=== PATIENT | female | born 1980 | race Caucasian/White ===

== ENCOUNTER 2018-01-25 18:54 | Observation (INO) | payer SELFPAY ==
[2018-01-25] VITALS (8 sets, daily range): BP systolic 94–130; BP diastolic 67–81; PULSE 74–108; RESP 14–161; TEMP 36.2–37.2; O2SAT 94–99; BMI 40.1; BMI 34.3
--- NOTE | 2018-01-25 12:57 | CT_ITS ---
STUDY: CT ABDOMEN AND PELVIS WITH CONTRAST REASON FOR EXAM: Female, 37 years old. Right lower quadrant pain. RLQ pain and fever x 4 days, 4 weeks post . RADIATION DOSAGE (If Supplied By Facility): CTDIvol = ( 15.99 ) mGy, DLP = ( 1272.80 ) mGycm TECHNIQUE: Transaxial images were obtained from the dome of the diaphragm to the symphysis pubis without oral contrast. 100mL ml of Isovue 300 contrast was administered. Sagittal and coronal images were reconstructed. Individualized dose optimization techniques were used for this CT. COMPARISON: None. FINDINGS: The visualized lung bases are unremarkable. The visualized portions of the heart are within normal limits. Normal liver. Normal gallbladder and extrahepatic biliary system. Normal spleen. Normal pancreas. Normal bilateral adrenal glands. Normal right kidney. Normal left kidney. Normal visualized stomach. Normal small intestine. Normal colon. There is a tubular, thick-walled appendix (>7mm), consistent with acute appendicitis. Normal abdominal aorta. Normal inferior vena cava. Normal retroperitoneum. Normal urinary bladder. Normal abdominal wall. Normal osseous structures. CT/Abdomen/Pelvis WITH Contrast IMPRESSION: Acute appendicitis Electronically Signed: Toni Castaneda MD at 15:46 EDT Tel , Service support ,
[2018-01-25 13:08] LABS: Hematocrit 33.2 % (37-47); Hemoglobin 10.8 g/dl (12.0-15.0); Mean Corp Hgb Conc 32.5 g/gl (32-36); Mean Corpuscular Hgb 27.1 pg (27.0-32.0); Mean Corpuscular Volume 83.4 fL (81-99); Mean Platelet Vol. 10.3 fl (6.2-12.0); Platelet Count 315 K/mm3 (150-450); RBC Distribution Width SD 41.5 fl (35.1-43.9); Red Blood Count 3.98 M/mm3 (4.2-5.4)
[2018-01-25 13:11] LABS: Scan Indicated on CBC? Y/N NO
[2018-01-25 13:36] LABS: ALB/GLOB Ratio 0.8 RATIO (0.9-2.4); AST(SGOT) 31 U/L (15-37); Alanine Aminotransfer ALT/SGPT 41 U/L (13-56); Albumin, Serum 3.4 g/dL (3.2-5.0); Alkaline Phosphatase 140 U/L (45-117); Anion Gap 6 (5-15); BUN 8 mg/dL (7-18); BUN/Creat Ratio 9.2 RATIO (10-20); Calcium,Total 8.2 mg/dL (8.5-10.1); Chloride 100 mmol/L (98-107); Creatinine, Serum 0.87 mg/dL (0.55-1.02); EST Glomerular Filtration Rate 77 mL/min (>60); Est Glom Filt Rate - Afr Amer 93 mL/min (>60); Glucose 152 mg/dL (74-106); Potassium 4.3 mmol/L (3.5-5.1); Protein, Total 7.4 g/dL (6.4-8.2); Sodium Level 134 mmol/L (136-145)
[2018-01-25] MEDS: Piperacil/Tazobactam 3.375 GM/50 ML ML IV (17:25)
--- NOTE | 2018-01-25 17:30 | APP_PTH ---
PATIENT: CRISTINE WHATLEY LOC: [facility]3 U#:[id number] AGE/SX: 37/F ROOM: MS313 RE01/25/[address]: Dr. Rafael Beltran MD : 1980 BED: 1 DIS: 01/26/2018 SPEC #: [id number] RECD: 01/26/18 08:54 STATUS: EDY EILEEN #: [id number] YG: 01/25/18 17:[address]: Rafael Beltran DEPT: SURGICAL PATHOLOGY RECD BY: Navarro Etienne ENTERED: 01/26/18 09:32 SP TYPE: APPENDIX OTHR DR: Dr. Debbie Paz MD No Primary Care Phys Tissues: A - Appendix, NOS B - HERNIA Procedures: Surgery Specimen Level II Surgery Specimen Level III HEADER OPERATION: Laparoscopic appendectomy, umbilical hernia repair PRE-OP DIAGNOSIS: Acute appendicitis, umbilical hernia TISSUE SUBMITTED: A ? Appendix, B ? Hernia sac MICROSCOPIC DIAGNOSIS A. Appendix, appendectomy: Acute appendicitis. Acute serositis. B. Soft tissue of umbilical region, excision: Hernia sac with mild fibrosis. AM:nettie 01/27/18 MICROSCOPIC DESCRIPTION Slides are reviewed. GROSS DESCRIPTION A - Received is one container labeled with the patient's name and designated appendix. The specimen consists of an appendix measuring 7.5 cm in length and up to 1 cm in average diameter. The attached periappendiceal adipose tissue measures up to 3 cm in width. The serosa is congested. No obvious perforation is identified. The mucosa is focally congested. No fecalith is identified. Lithographed Plate Inspector sections are submitted in one cassette. B - Received in fixative is one container labeled with the patient's name and designated hernia sac. The specimen consists of two pieces of soft tissue measuring in aggregate 1 x 1 x 0.2 cm. The entire specimen is submitted in one cassette. / SJ:nettie 01/26/18 TC:2 CPT: 55883, 39863
--- NOTE | 2018-01-25 17:54 | PCM.DC.GS ---
Discharge Diet: Light diet - advance as tolerated - if you have questions about your diet instructions, please talk to you doctor. Discharge Activity: May Not Drive - for 1 week or while taking narcotic pain medicine. May shower in (days): 1 Lifting Restrictions: 10 pounds Call your doctor if your incision/area has: Continuous Slow Oozing, Sudden Increased Bleeding, Increased Pain/ Swelling, Increased Redness, Foul Smelling Discharge Call your doctor if you observe: Fever of 101 or Higher Suture Line Care: Avoid Pulling/Pushing, Avoid Pinching/Bending Additional Dressing/Incision Instructions:: Change or remove dressing in 4 days. Leave steri-strips in place for 1 week. Allergies/Adverse Reactions: Allergies No Known Allergies Allergy (Verified 01/25/18 16:26) Medications to take at Discharge Mv-Min/Iron/Folic/Calcium/Vitk [Women's Multivitamin Tablet] 1 each PO DAILY 01/25/18 Primary Care Physician: Care Physician,No Primary [Primary Care Provider] - Please Follow Up With: Rafael Beltran MD - [phone] When: Call to make an appointment to be seen in about 10 days.
[2018-01-25 18:12] LABS: Pregnancy, Serum, hCG Quali. NEGATIVE Negative (0-9 Nonpreg)
[2018-01-25] MEDS: Bupivacaine Mpf 0.5% 30 ML VIAL (18:50)
--- NOTE | 2018-01-25 18:58 | PCM.OPRPT ---
Problem List (1) Acute appendicitis Status: Acute Qualifiers: Acute appendicitis type: unspecified acute appendicitis type Qualified Code(s): K35.80 - Unspecified acute appendicitis (2) Umbilical hernia Status: Acute Qualifiers: Obstruction and gangrene presence: without obstruction or gangrene Qualified Code(s): K42.9 - Umbilical hernia without obstruction or gangrene Report of Operation Date of Procedure: 01/25/18 Pre-Operative Diagnosis: Acute appendicitis. Umbilical hernia Post-Operative Diagnosis: Same Surgery/Procedure Performed:: Laparoscopic appendectomy. Umbilical herniorrhaphy Description of Surgical Findings:: Timeout and informed consent was obtained. 37-year-old gent was taken the operating. Zosyn 3.375 g are given intravenously therapeutically preoperatively. She underwent general ventricular-based anesthesia. The abdomen was sterilely prepped draped. 0.5% Marcaine was used as a local anesthetic. Skin sites were pre-anesthetized. Throughout the procedure total 30 cc was used. A curvilinear incision was made in the inferior portion of the umbilicus. The umbilical hernia sac identified. It was circumferentially dissected free and a portion submitted as a specimen. It is of note that the patient has an incredibly thin attenuated abdominal wall at all locations. The Muñoz catheter was inserted. Under direct visitation five-minute in the low infraumbilical midline position. The abdomen was inspected. There was obvious acute inflammation of the appendix with some periappendiceal induration of the mesentery and fat. Blunt dissection was instituted at the appendiceal base. A standard height 45 mm stapler was placed and the appendix was secured absolutely flush with the cecum. A vascular height stapler was used to transect the mesoappendix. A Hem-o-belia clip was used for additional hemostasis. The appendix was placed within a retrieval bag. There was no spillage. The resection area was inspected carefully. Hemostasis was nicely intact. The Muñoz catheter appendix removed at the umbilicus. The abdomen was allowed to deflate of the CO2. The umbilical hernia was approximated with several interrupted [id number] sutures of 0 Nurolon. Skin edges were approximated up to 4 Monocryl subdermal stitches at all skin sites. Steri-Strips Telfa and OpSite dressings applied. Sponge and instrument and needle counts were reported to the surgeon to be correct. Specimens include the appendix in the umbilical hernia sac. Drains none. Blood loss minimal. The patient was taken to the recovery area in satisfactory condition. Rafael Beltran M.D., F.A.C.S. Type of Anesthesia:: General Anesthesiologist: Zuhair Alfaro
--- NOTE | 2018-01-25 19:01 | OP.PCM_ITS ---
Problem List (1) Acute appendicitis Status: Acute Qualifiers: Acute appendicitis type: unspecified acute appendicitis type Qualified Code (s): K35.80 - Unspecified acute appendicitis (2) Umbilical hernia Status: Acute Qualifiers: Obstruction and gangrene presence: without obstruction or gangrene Qualified Code(s): K42.9 - Umbilical hernia without obstruction or gangrene Report of Operation Date of Procedure: 01/25/18 Pre-Operative Diagnosis: Acute appendicitis. Umbilical hernia Post-Operative Diagnosis: Same Surgery/Procedure Performed:: Laparoscopic appendectomy. Umbilical herniorrhaphy Description of Surgical Findings:: Timeout and informed consent was obtained. 37-year-old gent was taken the operating. Zosyn 3.375 g are given intravenously therapeutically preoperatively. She underwent general ventricular-based anesthesia. The abdomen was sterilely prepped draped. 0.5% Marcaine was used as a local anesthetic. Skin sites were pre-anesthetized. Throughout the procedure total 30 cc was used. A curvilinear incision was made in the inferior portion of the umbilicus. The umbilical hernia sac identified. It was circumferentially dissected free and a portion submitted as a specimen. It is of note that the patient has an incredibly thin attenuated abdominal wall at all locations. The Muñoz catheter was inserted. Under direct visitation five-minute in the low infraumbilical midline position. The abdomen was inspected. There was obvious acute inflammation of the appendix with some periappendiceal induration of the mesentery and fat. Blunt dissection was instituted at the appendiceal base. A standard height 45 mm stapler was placed and the appendix was secured absolutely flush with the cecum. A vascular height stapler was used to transect the mesoappendix. A Hem-o-belia clip was used for additional hemostasis. The appendix was placed within a retrieval bag. There was no spillage. The resection area was inspected carefully. Hemostasis was nicely intact. The Muñoz catheter appendix removed at the umbilicus. The abdomen was allowed to deflate of the CO2. The umbilical hernia was approximated with several interrupted [id number] sutures of 0 Nurolon. Skin edges were approximated up to 4 Monocryl subdermal stitches at all skin sites. Steri-Strips Telfa and OpSite dressings applied. Sponge and instrument and needle counts were reported to the surgeon to be correct. Specimens include the appendix in the umbilical hernia sac. Drains none. Blood loss minimal. The patient was taken to the recovery area in satisfactory condition. Rafael Beltran M.D., F.A.C.S. Type of Anesthesia:: General Anesthesiologist: Zuhair Alfaro
[2018-01-26 00:26] VITALS: BP 107/62; PULSE 88; RESP 18; TEMP 37.4; O2SAT 94
--- NOTE | 2018-01-26 01:08 | NURSING ---
Post-op checks completed, patient stated she still wanted to breastfeed her son. This RN told patient that she would be back around 1am, patient was okay with this, to see if the patient wanted to try and walk and use the bathroom. This RN knocked on the door, walked into the patients room and patient was still . Per patient I don't think I can do anything. This RN told patient that she would be back to try again once she was done. Will continue to monitor.
--- NOTE | 2018-01-26 01:53 | NURSING ---
Patient was assisted to the bathroom via x2 assist, c/o feeling dizzy. Patient was able to void 450mls. Patient was then able to walk in hallway with this RN and COLLABORATING SUPERVISING PHYSICIAN. Patient assisted back to bed, water pitcher refilled. PRN pain medication offered and patient declined. Will continue to monitor.
[2018-01-26 01:55] VITALS: TEMP 37.1
[2018-01-26] MEDS: Lactated Ringers 1,000 ML 30 ML IV (02:05)
[2018-01-26 06:05] VITALS: BP 109/61; PULSE 83; RESP 16; TEMP 36.9; O2SAT 95
[2018-01-26] MEDS: Enoxaparin 40 MG/0.4 ML Syringe SC (06:11)
[2018-01-26] MEDS: 0.9% NaCl Peripheral Flush Adult/Peds IV (06:11)
--- NOTE | 2018-01-26 06:38 | PCM.PN.SRG ---
Patient Problems: Active and Suspected Problems (Last Updated 01/25/18 @ 16:25 by Kia Burris) Acute appendicitis (Acute) Umbilical hernia (Acute) Subjective: Patient evaluated resting comfortably in bed. She denies nausea, vomiting, fever. She notes minimal discomfort in the RLQ. - Physical Exam General: Alert, Oriented x3, Cooperative Abdomen: Bowel Sounds Present, Soft, Tender - RLQ Vital Signs Temp Pulse Resp BP Pulse Ox 98.4 F 83 16 109/61 95 01/26/18 06:05 01/26/18 06:05 01/26/18 06:05 01/26/18 06:05 01/26/18 06:05 Oxygen Delivery Method Room Air Weight: 200 lb Body Mass Index (BMI) 34.3 Intake and Output for Last 24 Hours 01/24/18 01/25/18 01/26/18 23:59 23:59 23:59 Intake Total 700 / 700 1563 / 1563 Output Total 1150 / 1150 Balance 700 / 700 413 / 413 Laboratory Tests Past 24 Hrs 01/25/18 01/25/18 01/25/18 12:45 12:45 12:50 WBC 6.0 RBC 3.98 L Hgb 10.8 L Hct 33.2 L MCV 83.4 MCH 27.1 MCHC 32.5 RDW 14.0 RDW Differential 41.5 Plt Count 315 MPV 10.3 Sodium 134 L Potassium 4.3 Chloride 100 Carbon Dioxide 28.0 Anion Gap 6 BUN 8 Creatinine 0.87 Est GFR (MDRD) Af Amer 93 Est GFR (MDRD) Non-Af 77 BUN/Creatinine Ratio 9.2 L Glucose 152 H Calcium 8.2 L Total Bilirubin 0.80 AST 31 ALT 41 Alkaline Phosphatase 140 H Total Protein 7.4 Albumin 3.4 Globulin 4.0 Albumin/Globulin Ratio 0.8 L Serum , Qual NEGATIVE Medical Necessity - Tobacco Use Smoking Status: Never smoker Tobacco Use: Non-smoker Assessment/Plan All Active Problems (Last Updated 01/25/18 @ 16:25 by Kia Burris) Acute appendicitis (Acute) Umbilical hernia (Acute) Delirium (Acute) Acute blood loss anemia (Acute) Hemorrhagic shock (Acute) Spontaneous complicated by shock (Acute) I am following this patient in conjunction with Dr. Beltran S/p Laparoscopic appendectomy Ready for discharge
[2018-01-26 08:36] VITALS: BP 119/72; PULSE 75; RESP 16; TEMP 37.2; O2SAT 95
== END 2018-01-26 11:34 | disposition home or self-care (01) ==
LOC: MS3 20:26
PROVIDERS: Anesthesiology; Obstetrics & Gynecology; Admitting Provider Surgery; Visit Provider Surgery
PROC: 0DTJ4ZZ Resection of Appendix, Percutaneous Endoscopic Approach (ICD-10-PCS; CPT 44970; principal; 2018-01-25 17:30)
DX: K35.80 Unspecified acute appendicitis (principal); K42.9 Umbilical hernia without obstruction or gangrene
CPT/HCPCS: 00840; 44970; 49652; 36415; 74177; 80053; 84703; 85027; 88302; 88304; 96372; 99218; J7120; Q9967; A4216; G0378; G0379; J0330; J2405

== ENCOUNTER 2019-12-05 18:23 | Emergency (ER) | payer OTHER, SELFPAY ==
[2019-12-05 18:23] VITALS: BP 150/91; PULSE 87; RESP 24; TEMP 35.9; O2SAT 100; BMI 39.7
--- NOTE | 2019-12-05 18:39 | ED.VISSUMM ---
- ER Visit Summary Date of Service: 12/05/19 Chief Complaint: Reportedly 11 weeks with heavy vaginal bleeding History of Present Illness: The patient is a 39 F G 16 P 12 AB 3 patient states she is 11 weeks and today started having heavy vaginal bleeding. States she was on the toilet and passed out. She did not fall because her was there holding her up. She denies any pain. She has had 3 prior miscarriages. Her blood type is O+ according to prior labs. She denies any other complaints. Said she is recently been healthy. Physical Examination: Middle-aged female vital signs are stable afebrile. Pulse ox 100% on room air no signs hypoxia. Initial pressure 150/91. HEENT exam unremarkable. Neck nontender. Lungs clear to auscultation bilaterally. Heart regular rhythm rate about 85 no murmur. Abdomen soft nontender normal bowel sounds no peritoneal signs. Extremities moves all 4. Calves nontender no edema no cords. Neurologically she is awake alert with no focal motor deficits. Pelvic exam done female nurse present in the room. Female nurse present in room. External exam unremarkable. Speculum exam showed moderate vaginal bleeding small clots. Bimanual exam she had no uterine or adnexal tenderness. There was no discharge. Test Results: CBC shows a white count of 14. Hemoglobin 11.4 previously she was around 10.5. Chemistries unremarkable normal creatinine and gap. Blood type so positive from a prior draw. Quantitative hCG is only 882. I discussed with the patient she said she had an ultrasound done in her home which they thought she was around 7 weeks around 3 to 4 weeks ago. She has had no prior quantitative hCGs this . Emergency Department Course and Treatment: female first trimester with heavy vaginal bleeding. Concern for miscarriage. She passed out also concern for anemia. She also requested to be treated with a liter normal saline due to her lightheadedness at home. Repeat exam patient is doing well at 11 PM. I discussed all the test results with her. Clinically I think she is having a miscarriage. I also called her NIGHT SUPERVISOR Dr. Jose Ramon hammonds who will follow-up as an outpatient. Treatment Plan: I will up with your NIGHT SUPERVISOR tomorrow. Return if feeling a lot worse or having much heavier bleeding. Tylenol and/or Motrin for pain. Disposition: Discharge Impression: First trimester Threatened miscarriage Heavy vaginal bleeding Syncopal event This note was generated with [employer] dictation software. It may contain incorrect words, spelling, and punctuation that were not noted in review of the chart prior to signing ED Disposition - Plan for ED Patient: Disposition: Home or Assisted Living Instructions: ED Possible Miscarriage Threatened Referrals: Debbie Paz MD [STAFF PHYSICIAN] - 1 Day Additional Instructions: Plenty of fluids and rest. Follow-up with your NIGHT SUPERVISOR doctor Debbie Paz tomorrow. Tylenol and or Motrin for pain. Return to the ER if you are having much worse bleeding or feeling worse. Otherwise follow-up with Dr. Jose Ramon Spears tomorrow. I think your having a miscarriage.
[2019-12-05 18:44] VITALS: BP 143/120; PULSE 86; RESP 18; O2SAT 99
[2019-12-05 18:47] LABS: Hematocrit 34.4 % (37-47); Hemoglobin 11.4 g/dL (12.0-15.0); Mean Corp Hgb Conc 33.1 g/dL (32-36); Mean Corpuscular Hgb 27.7 pg (27.0-32.0); Mean Corpuscular Volume 83.7 fL (81-99); Mean Platelet Vol. 10.1 fl (6.2-12.0); Platelet Count 323 K/mm3 (150-450); RBC Distribution Width CV 13.4 % (11.6-14.6); RBC Distribution Width SD 40.9 fl (35.1-43.9); Red Blood Count 4.11 M/mm3 (4.2-5.4); White Blood Count 14.2 K/mm3 (4.4-11.0)
[2019-12-05 19:06] LABS: Anion Gap 8 (5-15); BUN 11 mg/dL (7-18); Calcium,Total 8.8 mg/dL (8.5-10.1); Chloride 106 mmol/L (98-107); Creatinine, Serum 0.92 mg/dL (0.55-1.02); EST Glomerular Filtration Rate 72 mL/min (>60); Est Glom Filt Rate - Afr Amer 87 mL/min (>60); Estimated Creatinine Clearance 72.41 ml/min; Glucose 129 mg/dL (74-106); Potassium 3.4 mmol/L (3.5-5.1); Sodium Level 139 mmol/L (136-145)
[2019-12-05 19:09] LABS: hCG Titer Quant., Serum 882 mIU/mL (1-3)
--- NOTE | 2019-12-05 20:14 | DCINST.ED_ITS ---
ED Disposition - Plan for ED Patient: Disposition: Home or Assisted Living Instructions: ED Possible Miscarriage Threatened Referrals: Debbie Paz MD [STAFF PHYSICIAN] - 1 Day Additional Instructions: Plenty of fluids and rest. Follow-up with your ASSISTANT WOMEN'S TENNIS COACH doctor Debbie Paz tomorrow. Tylenol and or Motrin for pain. Return to the ER if you are having much worse bleeding or feeling worse. Otherwise follow-up with Dr. Jose Ramon Spears tomorrow. I think your having a miscarriage.
[2019-12-05 20:23] VITALS: BP 119/72; PULSE 89; RESP 18; O2SAT 97
[2019-12-05] MEDS: 0.9% Normal Saline 1,000 ML 999 ML IV (20:33)
== END 2019-12-05 21:50 | disposition home or self-care (01) ==
PROVIDERS: Emergency Provider Emergency Medicine
DX: O20.0 Threatened abortion (principal); O26.891 Other specified pregnancy related conditions, first trimester; R55 Syncope and collapse; Z3A.11 11 weeks gestation of pregnancy
CPT/HCPCS: 80048; 84702; 85027; 96360; 99283; J7030; A4216

== ENCOUNTER 2022-09-30 15:37 | Emergency (ER) | payer SELFPAY ==
[2022-09-30 15:38] VITALS: BP 138/84; PULSE 116; RESP 14; TEMP 36.2; O2SAT 97; BMI 40.9
--- NOTE | 2022-09-30 15:59 | US_ITS ---
EXAM: US , TRANSVAGINAL CLINICAL INDICATION: bleeding and TECHNIQUE: Real-time transvaginal obstetrical ultrasound of the maternal pelvis and a first trimester with image documentation. Transvaginal imaging was used for better evaluation of the fetus and adnexa. This report was created using [employer] report generation technology. COMPARISON: None. FINDINGS: GESTATION: There is no evidence of a gestational sac. PLACENTA/AMNIOTIC FLUID: Cannot be adequately evaluated due to the early gestational age. UTERUS/CERVIX: Uterus measures 11.6 x 6.2 x 8.1 cm. The endometrium measures 1.8 cm transabdominally and 1.4 cm endovaginally. No myometrial mass. OVARIES: The left ovary measures 2.5 x 1.8 x 1.9 cm. The right ovary is not visualized. FREE FLUID: No free fluid. US/Transvaginal w/Preg US IMPRESSION: Thickened endometrium with no evidence of a gestational sac or intrauterine gestation. Right ovary is not visualized. No mass or fluid collections are identified. Electronically Signed: Ezekiel Flynn MD at 17:19 [facility] ,
--- NOTE | 2022-09-30 16:04 | EDS_ITS ---
HPI HPI - Female History of Present Illness Chief Complaint: Vag Bld, Preg Informant: patient Bleeding Issue: Positive for Vaginal bleeding and Passing clots Onset: Today Timing: Continuous Current Severity: Similar to period Associated Symptoms Associated Symptoms: Negative for Dysuria or Frequency Test: Positive P: 13 Ab: 4 Narrative Narrative: 42-year-old female no past medical history other than with 4 prior miscarriages. Currently she is about 12 weeks is had no care. 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 Started having vaginal bleeding today. She believes she is having a miscarriage. Her DETAIL ASSEMBLER Dr. Debbie Paz called and to have her evaluated. Patient denies any pain. Prior similar symptoms: Yes Recent Illness/Hospitalization: No PFSH PFSH Medical History (Updated 09/30/22 @ 17:[address] Domo Coburn MD) No pertinent past medical history Home Medications misoprostol 200 mcg tablet (Cytotec) 600 mcg PO .complex #8 tabs 12/06/19 [Rx Last Taken Unknown] Allergy/AdvReac Type Severity Reaction Status Date / Time No Known Allergies Allergy Verified 09/30/22 15:38 Family History Mother No problems noted. 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 Review of Systems ROS Unobtainable: Denies due to encephalopathy Constitutional Constitutional ED: Denies chills or fever(s) Eyes Eyes: Denies blurry vision ENT ENT ED: Denies ear pain Cardiovascular Cardiovascular: Denies chest pain Respiratory/Chest Respiratory/Chest: Denies cough Gastrointestinal Gastrointestinal: Denies abdominal pain Genitourinary Genitourinary ED: Denies dysuria Musculoskeletal Musculoskeletal: Denies arthralgias Integumentary Denies abscess Neurologic Neurologic: Denies headache(s) Psychiatric Psychiatric: Denies anxiety Endocrine Endocrinology: Denies heat intolerance Hematologic/Lymphatic Hematologic/Lymphatic: Denies easy bleeding Allergic/Immunologic Allergic/Immunologic ED: Denies mouth swelling or tongue swelling EXAM Physical Exam Narrative Exam Narrative: 42-year-old female no acute distress. Vital signs stable afebrile. Initial blood pressure 138/84. Heart rate 116. Patient does not look septic or toxic. H EENT exam unremarkable. Moist weeks membranes. Neck nontender no lymphadenopathy. Lungs clear to auscultation bilaterally. Heart tachycardic rate about 115 no murmur. Abdomen soft nondistended normal bowel sounds no peritoneal signs. No significant tenderness. Moving all 4 extremities. Nontender no edema. Neurologically she is awake and alert. Const Vital Signs: 09/30/22 15:38 Temperature 97.2 F L Temperature Source Temporal Pulse Rate 116 H Respiratory Rate 14 Blood Pressure 138/84 H Blood Pressure Mean 102 Pulse Ox 97 Oxygen Delivery Method Room Air Positive well nourished and well developed; Negative for obese, cachectic, contractures or unkempt General Appearance ED: well developed and NAD; Negative for unkempt, cachectic, contractures or pallor Nutritional Appearance: Negative for cachectic or obese HEENT Reports moist mucous membranes Negative for trauma or tenderness Eyes PERRL and EOMs intact bilaterally General Eye ED: Negative for pale conjunctiva or scleral icterus Neck no lymphadenopathy, supple and no JVD General: Negative for other Thyroid: Negative for tender Lymph Lymphatic: Negative for other Chest Wall inspection of chest normal and palpation of chest normal Chest: Negative for other Resp normal respiratory effort and clear to auscultation bilaterally Effort and Inspection: Negative for pain with movement Auscultation: Negative for rales, rhonchi or wheezes Cardio regular rhythm, S1 normal heart sound, no murmurs and no JVD; Negative for regular rate Rate: tachycardic GI normal to inspection, nondistended, normoactive bowel sounds, soft to palpation, non-tender and non-distended Auscultation: normoactive bowel sounds Palpation: Negative for tender or guarding Back/Spine no CVA tenderness General Back: Negative for CVA tenderness Cervical Spine: Negative for cervical spine tenderness Thoracic Spine / Upper Back: Negative for thoracic spinal tenderness Lumbar Spine / Lower Back: Negative for lumbar spinal tenderness Sacrum: Negative for other Extremity normal to inspection and full ROM General Extremety ED: Negative for edema General Extremity: Negative for edema Neuro oriented x3 and CN's II-XII intact bilaterally Sensorium / Orientation: alert, oriented to person, oriented to place and oriented to time; Negative for confused, lethargic or stuporous Motor Exam: strength 5/5 throughout Psych mental status grossly normal Appearance: Negative for unkempt Attitude: No agitated Speech: No other Mood & Affect: Negative for depressed, anxious or tearful Skin no rashes or lesions noted and no wounds General Skin Exam: Negative for pallor Rashes: No rashes noted Trauma: Negative for other MDM MDM MDM Narrative Medical decision making narrative: 42-year-old female with 4 prior miscarriages. Currently at 12 weeks with no care and having vaginal bleeding. Concern is for possible miscarriage versus other etiologies. Ultrasound and labs are being obtained. Have already spoken to the the DETAIL ASSEMBLER Dr. Jose Ramon Spears that will be caring for the patient. The question is does she need a D&C if so they will try to do it soon. If not they will treat her with medications. I did review the patient's old labs. Her blood type so positive. Repeat exam patient is doing well at 4:45 PM and 5:13 PM. I spoke to her DETAIL ASSEMBLER Dr. Debbie Paz. She came and evaluated patient and did a pelvic exam in the ER. She said while she was on pelvic exam the patient passed tissue consistent with a completed miscarriage. There is no heavy bleeding at this time. In regards to her labs and ultrasound Dr. Jose Ramon Spears is comfortable with the patient being discharged home. She does not need a D&C at this time. She does not need to be given any medications. Patient be discharged home with instructions to return if she has heavy bleeding or follow-up with Dr. Jose Ramon dunaway if not improving. Lab Data Attestation: I reviewed the patient's lab results. Lab results narrative: CBC shows a white count 9.8. H&H 11.5 and 35.3. Platelets 325. These labs are consistent with . She does not need any type of transfusion. Blood type so positive. Her quant is pending. Patient's electrolytes are unremarkable normal anion gap of 11. Normal BUN and creatinine. Glucose 118. Transvaginal pelvic ultrasound showed a completed miscarriage with no retained products of conception. Thickened endometrium consistent with . Labs: Laboratory Results - last 24 hr 09/30/22 09/30/22 09/30/22 16:10 16:10 16:10 WBC 9.8 RBC 4.24 Hgb 11.5 L Hct 35.3 L MCV 83.3 MCH 27.1 MCHC 32.6 RDW Std Deviation 42.3 RDW Coeff of Leyla 14.1 Plt Count 325 MPV 10.4 Sodium 140 Potassium 3.7 Chloride 107 Carbon Dioxide 22.0 Anion Gap 11 BUN 11 Creatinine 0.76 Estim Creat Clear Calc 85.00 Est GFR (MDRD) Af Amer 107 Est GFR (MDRD) Non-Af 88 BUN/Creatinine Ratio 14.6 Glucose 118 H Calcium 8.6 Blood Type O POSITIVE Discharge Plan Triage Chief Complaint: Vag Bld, Preg ED Provider: Domo Coburn Dx/Rx/DC Orders Clinical Impression: Vaginal bleeding in , Complete miscarriage Instructions: ED Miscarriage Spontaneous Prescriptions: No Action misoprostol [Cytotec] 200 mcg tablet 600 mcg PO .complex Qty: 8 0RF Rx Instructions: 3 tabs vaginally now and 200mcg every 4 hours x 24 hours. Primary Care Provider: Demarcus Huerta Referrals: Demarcus Huerta DO [Primary Care Provider] - Debbie Paz MD [Med Staff - Active Staff] - 3-5 Days if not improving Activity Restrictions/Additional Instructions: Plenty fluids and rest. Tylenol and/or Motrin for pain. Follow-up with Dr. Debbie Paz if not improving. Return to the emergency department if continued heavy bleeding or you develop a fever. Disposition Disposition: Home, Self Care
[2022-09-30 16:25] LABS: Hematocrit 35.3 % (37-47); Hemoglobin 11.5 g/dL (12.0-15.0); Mean Corp Hgb Conc 32.6 g/dL (32-36); Mean Corpuscular Hgb 27.1 pg (27.0-32.0); Mean Corpuscular Volume 83.3 fL (81-99); Mean Platelet Vol. 10.4 fl (6.2-12.0); Platelet Count 325 K/mm3 (150-450); RBC Distribution Width CV 14.1 % (11.6-14.6); RBC Distribution Width SD 42.3 fl (35.1-43.9); Red Blood Count 4.24 M/mm3 (4.2-5.4); White Blood Count 9.8 K/mm3 (4.4-11.0)
[2022-09-30 16:35] LABS: Anion Gap 11 (5-15); BUN 11 mg/dL (7-18); BUN/Creat Ratio 14.6 RATIO (10-20); Calcium,Total 8.6 mg/dL (8.5-10.1); Chloride 107 mmol/L (98-107); Creatinine, Serum 0.76 mg/dL (0.55-1.02); EST Glomerular Filtration Rate 88 mL/min (>60); Est Glom Filt Rate - Afr Amer 107 mL/min (>60); Glucose 118 mg/dL (74-106); Potassium 3.7 mmol/L (3.5-5.1); Sodium Level 140 mmol/L (136-145)
[2022-09-30 17:23] LABS: hCG Titer Quant., Serum 1471 mIU/mL (1-3)
--- NOTE | 2022-10-01 | POC_PTH ---
PATIENT: CRISTINE WHATLEY LOC: ED U#:[id number] AGE/SX: 42/F ROOM: RE09/30/[address]: Dr. Domo Coburn MD : 1980 BED: DIS: 09/30/2022 SPEC #: [id number] RECD: 10/01/22 07:49 STATUS: EDY ARELLANO #: [id number] YG: 10/01/22 00:[address]: Domo Coburn DEPT: SURGICAL PATHOLOGY RECD BY: Candido Shipley ENTERED: 10/01/22 07:50 SP TYPE: PROD CONC OTHR DR: Dr. Demarcus Huerta DO Tissues: Product of conception, NOS Procedures: Surgery Specimen Level IV HEADER OPERATION: Not noted PRE-OP DIAGNOSIS: Missed TISSUE SUBMITTED: Products of conception MICROSCOPIC DIAGNOSIS Endometrium, curettage: Chorionic villi with focal hydropic change, decidualized stroma and trophoblastic cells consistent with products of conception. AM:nettie 10/04/2022 COMMENT Case has been reviewed in consultation with Dr. Gold who concurs with the above diagnosis. IDC:HERIBERTO MICROSCOPIC DESCRIPTION Slides are reviewed. GROSS DESCRIPTION Received fresh and postfixed in formalin is one container labeled with the patient's name and not further designated. The specimen consists of multiple fragments of pink hemorrhagic soft tissue mixed with blood clots that in aggregate measure 9.0 x 7.0 x 2.5 cm. No obvious tissue is identified. A textile machinery sales representative section is saved for Anora studies if needed. Supervisor Carding sections are submitted in six cassettes. / HERIBERTO:nettie 10/01/2022 TC:5 CPT: 27995
[2022-10-05 13:28] LABS: Pathology Specimen OB SEE PATHOLOGY REPORT
== END 2022-09-30 18:00 | disposition home or self-care (01) ==
PROVIDERS: Emergency Provider Emergency Medicine; PCP Family Medicine; Visit Provider Emergency Medicine
DX: O03.9 Complete or unspecified spontaneous abortion without complication (principal); Z87.59 Personal history of other complications of pregnancy, childbirth and the puerperium
CPT/HCPCS: 76817; 80048; 84702; 85027; 86850; 86900; 86901; 88305; 99283; A4216

== ENCOUNTER 2023-11-25 09:11 | Emergency (ER) | payer OTHER, SELFPAY ==
[2023-11-25 09:11] VITALS: BP 150/78; PULSE 76; RESP 14; TEMP 36.6; O2SAT 100; BMI 42.0
--- NOTE | 2023-11-25 09:38 | EKG12_ITS ---
Test Reason : CP Blood Pressure : / mmHG Vent. Rate : 076 BPM Atrial Rate : 076 BPM P-R Int : 138 ms QRS Dur : 096 ms QT Int : 388 ms P-R-T Axes : 070 074 050 degrees QTc Int : 436 ms Normal sinus rhythm Normal ECG Confirmed by Alvarez Rolon ([id number]), development editor DOM GARCIA ([id number]) on 11/28/2023 6:31:27 AM Referred By: Confirmed By:Alvarez Rolon
--- NOTE | 2023-11-25 09:39 | ED.VIS.CHEST ---
HPI History of Present Illness Chief Complaint: Chest Pain Informant: patient and spouse/S.O. Narrative Narrative: 12-year-old female presenting to the emergency see room with back pain and chest pain. Patient states that last night at about 1800 hrs. she began to have a dull pressure in the left side of her chest. It would occasionally become sharp. She states between 2000 and 2200 hrs. it was better but they got worse when she lay down to sleep. This morning she states that it was present again and seems to be more in the left thoracic back by her shoulder blade. She states when she moves her neck she feels discomfort in the musculature of the left neck down into the area of the back that is hurting. She denies any DVT or PE risk factors. No known cardiac disease. No history of pneumothorax. She denies cough or vomiting or fevers. She currently takes no home medications [facility] Medical History (Updated 11/25/23 @ 11:[address] Phu Forretser DO) No pertinent past medical history Home Medications misoprostol 200 mcg tablet (Cytotec) 600 mcg (3 x 200 mcg) PO .complex #8 tabs 12/06/19 [Rx Last Taken Unknown] cyclobenzaprine 10 mg tablet 10 mg PO TID PRN Muscle Spasm #15 TABLETS 11/25/23 [Rx Last Taken Unknown] Allergy/AdvReac Type Severity Reaction Status Date / Time No Known Allergies Allergy Verified 11/25/23 09:11 Family History Mother No problems noted. 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 ROS ROS ED Constitutional Constitutional ED: Denies chills, fever(s) or weight loss Eyes Eyes: Denies change in vision or diplopia ENT ENT ED: Denies ear pain, rhinorrhea or sore throat Cardiovascular Cardiovascular: Reports chest pain; Denies orthopnea, palpitations or racing heartbeat Respiratory/Chest Respiratory/Chest: Denies cough, dyspnea or orthopnea Gastrointestinal Gastrointestinal: Denies abdominal pain, diarrhea, nausea or vomiting Genitourinary Genitourinary ED: Denies dysuria, hematuria or urinary frequency Musculoskeletal Musculoskeletal: Reports back pain and neck pain; Denies arthralgias or myalgias Integumentary Denies abscess or rash Neurologic Neurologic: Denies headache(s) or weakness Psychiatric Psychiatric: Denies anxiety, depression, suicidal ideation or suicidal thoughts Endocrine Endocrinology: Denies polydipsia, polyphagia or polyuria Allergic/Immunologic Allergic/Immunologic ED: Denies mouth swelling, tongue swelling or urticaria EXAM Physical Exam Const Vital Signs: 11/25/23 09:11 11/25/23 09:25 11/25/23 11:00 Temperature 98 F Temperature Source Temporal Pulse Rate 76 69 Respiratory Rate 14 Respiratory Effort Normal Non-Labored Blood Pressure 150/78 H 126/70 H Blood Pressure Mean 102 88 Pulse Ox 100 Oxygen Delivery Method Room Air 11/25/23 12:03 Temperature 97.8 F Temperature Source Pulse Rate 68 Respiratory Rate 16 Respiratory Effort Blood Pressure 140/85 H Blood Pressure Mean 103 Pulse Ox 98 Oxygen Delivery Method Positive well nourished, well developed and obese General Appearance ED: well developed Nutritional Appearance: obese HEENT Reports normocephalic, head/scalp atraumatic and moist mucous membranes Eyes PERRL and EOMs intact bilaterally Neck no lymphadenopathy, supple and no JVD Resp normal respiratory effort and clear to auscultation bilaterally Cardio regular rate, regular rhythm and no murmurs GI normal to inspection, nondistended, normoactive bowel sounds and non-tender Palpation: soft Back/Spine no CVA tenderness and normal ROM Extremity normal to inspection General Extremety ED: Negative for edema General Extremity: Negative for edema Neuro oriented x3 and CN's II-XII intact bilaterally Sensorium / Orientation: alert Motor Exam: strength 5/5 throughout Psych mental status grossly normal Mood & Affect: Negative for depressed or tearful Skin no rashes or lesions noted and no wounds MDM MDM MDM Narrative Medical decision making narrative: Differential diagnosis includes but not limited to ACS, pulmonary embolism, aortic dissection, pneumothorax pleural effusions, muscular spasms, GERD, electrolyte abnormalities/cardiac dysrhythmias. CBC and BMP revealed a glucose of 142 normal hemoglobin and platelet count. Potassium 3.8 with a sodium of 138. D-dimer and troponin are within normal limits. test is negative. My independent interpretation of the chest x-ray is no acute process. Patient received a dose of Toradol. At this point I am not seeing acute intrathoracic pathology to explain her symptoms. I think this is most likely musculoskeletal in nature. I can try a muscle relaxant. Patient is comfortable with this plan return if worsening or concerns History & Record Review Discussion w/independent historian: Patient and Significant other Lab Data Attestation: I reviewed the patient's lab results. Labs: Laboratory Results - last 24 hr 11/25/23 09:50 WBC 6.4 RBC 4.73 Hgb 12.8 Hct 38.8 MCV 82.0 MCH 27.1 MCHC 33.0 RDW Std Deviation 42.0 RDW Coeff of Leyla 14.1 Plt Count 300 MPV 10.3 Immature Gran % (Auto) 0.300 Neut % (Auto) 57.6 Lymph % (Auto) 33.6 [place] % (Auto) 6.5 Eos % (Auto) 1.7 Baso % (Auto) 0.3 Absolute Neuts (auto) 3.7 Absolute Lymphs (auto) 2.16 Nucleated RBC % 0 D-Dimer Quant (PE/DVT) 0.32 Sodium 138 Potassium 3.8 Chloride 109 H Carbon Dioxide 25.0 Anion Gap 4 L BUN 15 Creatinine 0.83 Estim Creat Clear Calc 104.40 Est GFR (MDRD) Af Amer 95 Est GFR (MDRD) Non-Af 79 BUN/Creatinine Ratio 18.1 Glucose 142 H Calcium 8.8 Troponin I High Sens < 3 L Serum , Qual NEGATIVE Radiography Diagnostic Testing: Clinical Impression(s) from Imaging Studies Chest X-Ray 11/25/23 10:10 IMPRESSION: Normal x-ray examination of the chest. Electronically Signed: Tyron Ramirez MD at 10:26 EDT , EKG Initial EKG: Attestation: I personally reviewed and interpreted this EKG as follows: Comments: Normal sinus rhythm with a ventricular rate of 76 bpm Discharge Plan Triage Chief Complaint: Chest Pain ED Provider: Phu Forrester Dx/Rx/DC Orders Clinical Impression: Back pain, Chest pain Instructions: ED Chest Pain, Noncardiac Prescriptions: New cyclobenzaprine 10 mg tablet 10 mg PO TID PRN (Reason: Muscle Spasm) Qty: 15 0RF No Action misoprostol [Cytotec] 200 mcg tablet 600 mcg PO .complex Qty: 8 0RF Rx Instructions: 3 tabs vaginally now and 200mcg every 4 hours x 24 hours. Primary Care Provider: Demarcus Huerta Referrals: Demarcus Huerta DO [Primary Care Provider] - As Needed Disposition Disposition: Home, Self Care Discharge Date/Time: 11/25/23 12:04
[2023-11-25] MEDS: Ketorolac 30 MG/ML Syringe IV (09:50)
[2023-11-25 10:02] LABS: Absolute Lymphocyte Count 2.16 X10^3/uL (0.83-4.51); Absolute Neutrophil Count 3.7 X10^3/uL (2.0-7.7); Basophil# 0.02 X10^3/uL; Basophil% 0.3 % (0-1); Eosinophil# 0.11 X10^3/uL; Eosinophils% 1.7 % (0-5); Hematocrit 38.8 % (37-47); Hemoglobin 12.8 g/dL (12.0-15.0); Lymphocyte # 2.16 X10^3/ul (0.83-4.51); Lymphocyte % 33.6 % (19-41); Mean Corpuscular Hgb 27.1 pg (27.0-32.0); Mean Platelet Vol. 10.3 fl (6.2-12.0); Monocyte# 0.42 X10^3/uL; Monocyte% 6.5 % (0-10); NRBC Flagged by Analyzer 0 % (0-5); Neutrophil # 3.69 X10^3/uL (2.7-7.7); Neutrophil % 57.6 % (47-70); Platelet Count 300 K/mm3 (150-450); RBC Distribution Width CV 14.1 % (11.6-14.6); Red Blood Count 4.73 M/mm3 (4.2-5.4); White Blood Count 6.4 K/mm3 (4.4-11.0)
--- NOTE | 2023-11-25 10:10 | RAD_ITS ---
STUDY: X-RAY CHEST REASON FOR EXAM: Female, 43 years old. Chest pain TECHNIQUE: Single AP portable view of the chest. COMPARISON: None. FINDINGS: EKG electrodes are seen. The lungs are clear and expanded. There is no demonstrated pleural abnormality. Normal size heart. Normal mediastinum and fabiola. Normal visualized pulmonary arteries. Normal visualized aortic arch and descending thoracic aorta. Normal visualized thoracic spine. Normal visualized ribs, clavicles, and shoulders. There is no demonstrated abnormality of the visualized soft tissue structures of the upper abdomen. RAD/Chest 1 View (Portable) IMPRESSION: Normal x-ray examination of the chest. Electronically Signed: Tyron Ramirez MD at 10:26 EDT ,
[2023-11-25 10:20] LABS: D-Dimer Quantitative (DVT/PE) 0.32 FEU/ug/m (0.27-0.49)
[2023-11-25 10:21] LABS: Internal QC Validated? YES +Cl - CLEAR BKGD; Pregnancy, Serum, hCG Quali. NEGATIVE Negative
[2023-11-25 10:30] LABS: Anion Gap 4 (5-15); BUN 15 mg/dL (7-18); BUN/Creat Ratio 18.1 RATIO (10-20); Calcium,Total 8.8 mg/dL (8.5-10.1); Chloride 109 mmol/L (98-107); Creatinine, Serum 0.83 mg/dL (0.55-1.02); EST Glomerular Filtration Rate 79 mL/min (>60); Est Glom Filt Rate - Afr Amer 95 mL/min (>60); Glucose 142 mg/dL (74-106); Potassium 3.8 mmol/L (3.5-5.1); Sodium Level 138 mmol/L (136-145); Troponin-I HS (w/2H Reflex) < 3 pg/mL (3.0-54.0)
[2023-11-25 11:00] VITALS: BP 126/70; PULSE 69
[2023-11-25 11:56] LABS: Reflex Troponin-HS? (from REC) Y
[2023-11-25 12:03] VITALS: BP 140/85; PULSE 68; RESP 16; TEMP 36.6; O2SAT 98
== END 2023-11-25 12:04 | disposition home or self-care (01) ==
PROVIDERS: Emergency Provider Emergency Medicine; PCP Family Medicine; Visit Provider Emergency Medicine
DX: R07.9 Chest pain, unspecified (principal); Z68.41 Body mass index [BMI] 40.0-44.9, adult; M54.6 Pain in thoracic spine; E66.9 Obesity, unspecified
CPT/HCPCS: 71045; 80048; 84484; 84703; 85025; 85379; 93005; 96374; 99283; A4216

== ENCOUNTER → 2023-12-07 | Outpatient (CLI) | payer SELFPAY ==
[2023-12-07 16:59] LABS: hCG Titer Quant., Serum 1196 mIU/mL (1-3)
== END | disposition home or self-care (01) ==
PROVIDERS: PCP Family Medicine; Referring Provider Obstetrics & Gynecology; Visit Provider Obstetrics & Gynecology
DX: N91.2 Amenorrhea, unspecified (principal)
CPT/HCPCS: 36415; 84702

== ENCOUNTER → 2023-12-09 | Outpatient (CLI) | payer SELFPAY ==
[2023-12-09 15:14] LABS: hCG Titer Quant., Serum 2256 mIU/mL (1-3)
== END | disposition home or self-care (01) ==
LOC: LAB 13:29
PROVIDERS: PCP Family Medicine; Referring Provider Obstetrics & Gynecology; Visit Provider Obstetrics & Gynecology
DX: N91.2 Amenorrhea, unspecified (principal)
CPT/HCPCS: 36415; 84702

== ENCOUNTER → 2023-12-23 | Outpatient (CLI) | payer SELFPAY | END | disposition home or self-care (01) | LOC: LABSPEC 16:46 | PROVIDERS: PCP Family Medicine; Referring Provider Registered Nurse; Visit Provider Registered Nurse | DX: Z34.90 Encounter for supervision of normal pregnancy, unspecified, unspecified trimester (principal) | CPT/HCPCS: 87086; 87088 ==

== ENCOUNTER → 2024-01-18 | Outpatient (CLI) | payer SELFPAY ==
[2024-01-18 12:31] LABS: Absolute Neutrophil Count 5.5 X10^3/uL (2.0-7.7); Basophil# 0.03 X10^3/uL; Basophil% 0.4 % (0-1); Eosinophils% 1.2 % (0-5); Hematocrit 34.8 % (37-47); Hemoglobin 11.5 g/dL (12.0-15.0); Lymphocyte % 25.6 % (19-41); Mean Corpuscular Hgb 27.4 pg (27.0-32.0); Mean Corpuscular Volume 82.9 fL (81-99); Mean Platelet Vol. 10.4 fl (6.2-12.0); Monocyte# 0.49 X10^3/uL; NRBC Flagged by Analyzer 0 % (0-5); Neutrophil # 5.45 X10^3/uL (2.7-7.7); Neutrophil % 66.6 % (47-70); Platelet Count 287 K/mm3 (150-450); RBC Distribution Width CV 14.6 % (11.6-14.6); White Blood Count 8.2 K/mm3 (4.4-11.0)
[2024-01-18 13:59] LABS: HIV - WCH Non-Reactive (Nonreactive); Hepatitis B Surface Antigen Non-Reactive (Nonreactive); Hepatitis C Antibody Non-Reactive (Nonreactive); Rubella IgG Reactive (Nonreactive); Syphilis Antibodies Non-reactive
== END | disposition home or self-care (01) ==
LOC: LAB 10:58
PROVIDERS: Registered Nurse; PCP Family Medicine; Referring Provider Obstetrics & Gynecology; Visit Provider Obstetrics & Gynecology
DX: Z34.90 Encounter for supervision of normal pregnancy, unspecified, unspecified trimester (principal); Z3A.00 Weeks of gestation of pregnancy not specified
CPT/HCPCS: 36415; 83036; 85025; 86703; 86762; 86780; 86803; 86850; 86900; 86901; 87340

== ENCOUNTER 2024-03-08 15:00 | Outpatient (RCR) | payer SELFPAY | END 2024-03-14 23:59 | LOC: NS 15:00 | PROVIDERS: PCP Family Medicine; Referring Provider Obstetrics & Gynecology; Visit Provider Obstetrics & Gynecology | DX: Z71.3 Dietary counseling and surveillance (principal); O24.319 Unspecified pre-existing diabetes mellitus in pregnancy, unspecified trimester; Z3A.00 Weeks of gestation of pregnancy not specified | CPT/HCPCS: 97802 ==

== ENCOUNTER → 2024-03-19 | Outpatient (CLI) | payer SELFPAY ==
--- NOTE | 2024-03-19 15:21 | US_ITS ---
STUDY: SECOND AND THIRD TRIMESTER OBSTETRICAL ULTRASOUND REASON FOR EXAM: Female, 43 years old anatomy scan TECHNIQUE: Transabdominal and Transvaginal TECHNICAL QUALITY: Adequate. PRIOR ULTRASOUND: None. FINDINGS: There is a single intrauterine fetus. The fetus is in an transverse lie with the head on the maternal left side. There is demonstrated cardiac activity with a heart rate of 153 bpm. There is a normal amniotic fluid volume. The largest amniotic fluid pocket measures 5.2 cm. The amniotic fluid index (JUAN) is within normal limits. The placenta is posterior in location and is not low lying. There appears to be a circumvallate placenta. There are Grade 0 placental changes. The cervix measures 4.4 cm in length. The bilateral adnexal regions are normal. BIOMETRY: BPD: 4.8 cm: 20 weeks, 4 days HC: 17.9 cm: 20 weeks, 2 days AC: 15.4 cm: 20 weeks, 4 days FL: 3.3 cm: 20 weeks, 2 days CI: 78% FL/BPD: 68% FL/HC: FL/AC: 21.3% HC/AC: 1.2 age by current US: 20 weeks, 1 days. SYED by current US: August 05, 2024. Estimated weight: 358 grams, +/- 54 grams, 73 %. Age by LMP: 20 weeks, 0 days. SYED by LMP: August 06, 2024. ANATOMY: Gender: Female Cranium: Normal lateral ventricles. Normal choroid plexus. Normal cerebellum. Normal cisterna magna. Normal face, nose and lips. Chest: Normal 4-chamber heart. Abdomen/Pelvis: Normal diaphragm. Normal stomach. Normal abdominal wall. Normal cord insertion. Normal 3 vessel cord. Normal kidneys. Normal bladder. Spine: Normal cervical spine. Normal thoracic spine. Normal lumbar spine. Normal sacrum. Extremities: Normal bilateral upper extremities. Normal bilateral lower extremities. IMPRESSION: Single live intrauterine gestation with a mean gestational age of 20 weeks and 1 day. Electronically Signed: Tyron Ramirez MD at 9:32 EDT , STUDY: FIRST TRIMESTER OBSTETRICAL ULTRASOUND REASON FOR EXAM: Female, 43 years old . Cervical length. TECHNIQUE: Transvaginal TECHNICAL QUALITY: Adequate. PRIOR ULTRASOUND: None. FINDINGS: Cervical length measures 4.4 cm. US/OB Anatomy w/ Transvaginal IMPRESSION: Cervical length measures 4.4 cm. Electronically Signed: Tyron Ramirez MD at 9:33 EDT ,
== END | disposition home or self-care (01) ==
PROVIDERS: PCP Family Medicine; Referring Provider Obstetrics & Gynecology; Visit Provider Obstetrics & Gynecology
DX: O09.90 Supervision of high risk pregnancy, unspecified, unspecified trimester (principal); Z3A.00 Weeks of gestation of pregnancy not specified
CPT/HCPCS: 76805; 76817

== ENCOUNTER → 2024-07-04 | Outpatient (CLI) | payer SELFPAY ==
[2024-07-04 12:24] LABS: Absolute Lymphocyte Count 1.59 X10^3/uL (0.83-4.51); Absolute Neutrophil Count 4.7 X10^3/uL (2.0-7.7); Basophil# 0.02 X10^3/uL; Basophil% 0.3 % (0-1); Eosinophil# 0.11 X10^3/uL; Eosinophils% 1.6 % (0-5); Hematocrit 34.2 % (37-47); Hemoglobin 11.2 g/dL (12.0-15.0); Lymphocyte # 1.59 X10^3/ul (0.83-4.51); Lymphocyte % 23.2 % (19-41); Mean Corp Hgb Conc 32.7 g/dL (32-36); Mean Corpuscular Hgb 28.9 pg (27.0-32.0); Mean Corpuscular Volume 88.4 fL (81-99); Mean Platelet Vol. 11.6 fl (6.2-12.0); Monocyte# 0.44 X10^3/uL; Monocyte% 6.4 % (0-10); NRBC Flagged by Analyzer 0 % (0-5); Neutrophil # 4.65 X10^3/uL (2.7-7.7); Neutrophil % 68.1 % (47-70); Platelet Count 246 K/mm3 (150-450); RBC Distribution Width CV 14.1 % (11.6-14.6); RBC Distribution Width SD 45.5 fl (35.1-43.9); Red Blood Count 3.87 M/mm3 (4.2-5.4); White Blood Count 6.8 K/mm3 (4.4-11.0)
== END | disposition home or self-care (01) ==
LOC: BWCLAB 09:39
PROVIDERS: PCP Family Medicine; Referring Provider Obstetrics & Gynecology; Visit Provider Obstetrics & Gynecology
DX: O09.90 Supervision of high risk pregnancy, unspecified, unspecified trimester (principal); Z3A.00 Weeks of gestation of pregnancy not specified
CPT/HCPCS: 36415; 85025; 87491; 87591